=== PATIENT | female | born 1955 | race Caucasian/White ===

== ENCOUNTER 2018-12-18 11:34 | Emergency (ER) | payer MEDICARE, OTHER ==
[2018-12-18] MEDS: AZITHROMYCIN 250 MG TAB PO (13:43)
[2018-12-18] MEDS: BENZONATATE 100 MG CAP PO (13:43)
== END 2018-12-18 15:00 | disposition home or self-care (01) ==
LOC: E/R 11:34
DX: J40 Bronchitis, not specified as acute or chronic (principal); I10 Essential (primary) hypertension
CPT/HCPCS: 71045; 93005; 99284-25